=== PATIENT | female | born 1970 | race Caucasian/White ===

== ENCOUNTER 2016-08-26 15:00 | Inpatient (IN) | payer OTHER ==
[~2016-08-26] VITALS: Ht 165.1 cm; Wt 94.6 kg
--- NOTE | ~2016-08-26 | OR ---
PATIENT'S NAME: CHANI ZHAO [facility] AGE: 46 Y [address] ROOM: [place] [id number] LOCATION: [facility] ADMIT DATE: 09/03/2016 OR/Procedure Report DISCHARGE DATE: FAMILY PHYSICIAN: Trent White MD ATTENDING PHYSICIAN: MINH THOMAS SURGEON: Minh Thomas MD HEEL COVERER MACHINE OPERATOR: Deo Tatum CST/LEGAL EXAMINER and Dr. Minh Kirk. DATE OF PROCEDURE: 09/03/2016 PRE-OP DIAGNOSIS: Degenerative joint disease left knee. POST-OP DIAGNOSIS: Degenerative joint disease left knee. OPERATION: Left total knee arthroplasty with computer navigation. ANESTHESIA: Spinal anesthesia plus adductor canal block plus periarticular local anesthesia (Exparel). ESTIMATED BLOOD LOSS: Less than 20 mL. DRAIN: None. SPECIMEN: None. COMPLICATIONS: None. IMPLANT SYSTEM: [place] Triathlon Size 3 left posterior stabilized femoral component Size 2 universal modular tibial base plate An 11-mm posterior-stabilized size 2 X3 tibial polyethylene insert A 29-mm oval X3 patella component. INDICATIONS FOR SURGERY: Chani Zhao is a 46-year-old female, who presents with advanced left knee degenerative joint disease and associated severely compromised activities of daily living. The patient has decided to proceed with knee replacement after having been thoroughly counseled regarding the associated risks, benefits, and limitations. We have specifically reviewed the risks and implications of infection, deep venous thrombosis, pulmonary embolism, mortality, neurovascular complications, blood transfusion (and associated potential for disease transmission or transfusion reaction), stiffness, instability, mechanical deterioration of the components (due to wear and or loosening), and the potential need for revision. We have also emphasized the importance of active involvement and compliance with post- operative physical therapy as a means of optimizing range of motion and PATIENT'S NAME: CHANI ZHAO [facility] AGE: 46 Y [address] ROOM: [place] [address] LOCATION: [facility] ADMIT DATE: 09/03/2016 OR/Procedure Report DISCHARGE DATE: FAMILY PHYSICIAN: Trent White MD ATTENDING PHYSICIAN: MINH THOMAS functional recovery. Informed consent has been granted. Of note, the left total knee arthroplasty was performed under the same anesthetic as a revision right total knee arthroplasty (please refer to the separately dictated procedure for the right total knee arthroplasty revision). It should be noted that both lower extremities were prepped and draped concomitantly, and that the left total knee arthroplasty was performed after conclusion of the revision right total knee arthroplasty. DESCRIPTION OF PROCEDURE: The patient was positioned supine after administration of anesthesia and prophylactic antibiotics. A well-padded pneumatic tourniquet was placed around the left proximal thigh, and the left lower extremity was prepped and draped with vigilant sterile technique. The patient's name as well as the intended operative side and procedure were confirmed with a verbal time-out involving myself, the circulating nurse, the scrub nurse, and the anesthesiologist. Examination under anesthesia demonstrated no active skin lesions or masses. There was a mild effusion. There was no erythema. There was no abnormal warmth. Range of motion under anesthesia was from full extension to 130 degrees of flexion. There was no ligamentous insufficiency. The left lower extremity was elevated and exsanguinated with an Esmarch wrap, and the pneumatic tourniquet was inflated to 300 mmHg. The knee was approached through a longitudinal midline incision. A medial parapatellar arthrotomy was performed and the patella was everted. Examination of the joint space demonstrated a mild amount of benign-appearing translucent synovial fluid. There were no loose bodies. There was no synovitis. The cruciate ligaments were intact. There was a large popliteal cyst, which I decompressed into the posteromedial aspect of the joint by dilating its point of communication. There was full-thickness fissuring at the apex of the patella. There were small osteophytes at the medial and lateral femoral condyles as well as the medial tibial plateau. There was a 1 x 1-1/2 cm diameter region of full-thickness articular cartilage loss at the medial aspect of the medial femoral condyle. There was high-grade partial-thickness articular cartilage loss throughout the remainder of the medial femoral condyle. There was a 1-cm diameter region of full-thickness articular cartilage loss at the anteromedial aspect of the medial tibial plateau. There was high-grade partial-thickness articular cartilage loss throughout the majority of the anterior two-thirds of the medial tibial plateau. There was a 1-cm diameter region of high-grade partial thickness articular cartilage loss at the medial aspect of the lateral tibial plateau. The lateral meniscus was normal. There was a small flap tear at the posterior horn of the medial meniscus. PATIENT'S NAME: CHANI ZHAO [facility] AGE: 46 Y [address] ROOM: [id number] [place], [place] [id number] LOCATION: [facility] ADMIT DATE: 09/03/2016 OR/Procedure Report DISCHARGE DATE: FAMILY PHYSICIAN: Trent White MD ATTENDING PHYSICIAN: MINH THOMAS Remnants of the menisci and cruciate ligaments were excised. The Caterna computer navigation femoral tracker was pinned in place at the distal aspect of the femoral trochlea. Absence of motion between the femur and the tracking device was confirmed manually and visually. Femoral osseous landmarks were obtained in order to calibrate the computer navigation system. Landmarks included the center of rotation of the ipsilateral hip, the center-point of the distal femur, the femoral AP axis, 57 points on the medial femoral condyle articular surface, and 57 points on the lateral femoral condyle articular surface. The Caterna computer navigation system was subsequently utilized to position the distal femoral resection block such that the distal femoral resection was performed perfectly perpendicular to the femoral mechanical axis. The distal femoral resection was performed with a [employer] oscillating saw. The Caterna computer navigation tibial tracker was pinned in place at the anterior aspect of the tibial plateau. Absence of motion between the tibia and the tracking device was confirmed manually and visually. Tibial osseous landmarks were obtained in order to calibrate the computer navigation system. Landmarks included the center-point of the tibial plateau, the AP tibial axis, 57 points on the medial tibial plateau articular surface, 57 points on the lateral tibial plateau articular surface, the medial malleolus, and the lateral malleolus. The Caterna computer navigation system was subsequently utilized to position the proximal tibial resection block such that the proximal tibial resection was performed perfectly perpendicular to the tibial mechanical axis. The proximal tibial resection was performed with a [employer] Precision oscillating saw. Perpendicularity of the tibial resection with respect to the tibial shaft axis was reconfirmed by inserting a spacer- block attached to an extramedullary guide pablo. External rotation of the anterior and posterior femoral resections was set parallel to the epicondylar axis and carefully adjusted in order to create a rectangular flexion gap. The box resection was performed with a reciprocating saw. Anterior and posterior chamfer resections were performed with the oscillating saw. Posterior condyle osteophytes were excised with an osteotome. All other osteophytes were excised with a rongeur. Resection of all remnants of the menisci was reconfirmed. Flexion and extension gaps were confirmed to be symmetric and well balanced with a spacer-block technique. The patella resection was performed with an oscillating saw such that the composite thickness of the reconstructed patella was equivalent to the thickness of the [place]-apache patella. Patella tracking was confirmed to be optimal. A limited lateral retinacular release was required in order to optimize patellar tracking. PATIENT'S NAME: CHANI ZHAO [facility] AGE: 46 Y [address] ROOM: [address] [address] LOCATION: [facility] ADMIT DATE: 09/03/2016 OR/Procedure Report DISCHARGE DATE: FAMILY PHYSICIAN: Trent White MD ATTENDING PHYSICIAN: MINH THOMAS All trial components were removed and all prepared osseous surfaces were thoroughly irrigated with pulsatile saline lavage and dried prior to cementing all three components in a single stage using Flinja Simplex cement containing pre-mixed tobramycin. All extruded excess cement was removed. The entire joint space was thoroughly inspected and thoroughly irrigated with bacteriostatic pulsatile saline lavage to assure that there was no residual debris of any sort. Final range of motion was from full extension (with no passive hyperextension) to 130 degrees of flexion. Patella tracking was reconfirmed to be optimal. There was excellent anteroposterior stability at 90 degrees of flexion. There was less than 1 mm of medial lift-off to valgus stress in full extension. There was less than 1 mm of lateral lift-off to varus stress in full extension. The arthrotomy was closed with multiple simple and [id number] interrupted #1 Vicryl. Subcutaneous tissues were thoroughly re-irrigated with bacteriostatic pulsatile saline lavage. Subcutaneous tissues were re- approximated with simple buried interrupted #0 Vicryl sutures. The skin was closed with simple buried interrupted 2-0 Vicryl sutures followed by surgical torres. The dressing consisted of Xeroform gauze, 4x4 gauze, ABD pads and two 6-inch Cruz Wraps. There were no intra-operative complications. MD NEAL DELGADO/modl /[id number] d: 09/04/16 0635 t: 09/07/16 1203, OPERATIVE SUMMARY
--- NOTE | ~2016-08-26 | OR ---
PATIENT'S NAME: HARRISON ZHAO [facility] AGE: 46 Y [address] ROOM: [place] [address] LOCATION: [facility] ADMIT DATE: 09/03/2016 OR/Procedure Report DISCHARGE DATE: FAMILY PHYSICIAN: Trent White MD ATTENDING PHYSICIAN: MINH THOMAS SURGEON: Minh Thomas MD BOILERMAKER ASSEMBLY AND ERECTION: Deo Tatum BUFFET MANAGER/[employer] BOATMAN and Dr. Minh Kirk. DATE OF PROCEDURE: 09/03/2016 PREOPERATIVE DIAGNOSIS: Mechanical compromise of right total knee arthroplasty (ligamentous laxity with associated activity-related synovitis). POSTOPERATIVE DIAGNOSIS: Mechanical compromise of right total knee arthroplasty (ligamentous laxity with associated activity-related synovitis). PROCEDURE PERFORMED: Revision right total knee arthroplasty. ANESTHESIA: Spinal anesthesia plus periarticular local anesthesia (Exparel). ESTIMATED BLOOD LOSS: Less than 10 mL. SPECIMENS: Synovial fluid for cell count and routine cultures. COMPLICATIONS: None. EXPLANTS: Jeanne Persona size 13-mm posterior-stabilized cross-linked polyethylene insert. IMPLANTS: An 18-mm posterior-stabilized tibial polyethylene insert. INDICATIONS FOR PROCEDURE: Ms. Zhao is a 46-year-old female, who underwent a primary right total knee arthroplasty with Dr. Jhony Bell approximately two years ago. She presented with persistent and progressive right knee discomfort and instability symptoms. Radiographs demonstrate an uncemented tibial base plate with slight varus alignment, but no significant radiolucencies at the tibial or femoral interfaces. She is markedly unstable to varus and valgus stress in flexion and extension (symmetrically so). Risks, benefits, limitations, and alternatives to this procedure have been thoroughly reviewed with the patient, and informed consent has been granted. We have specifically reviewed risks and implications of infection, deep venous thrombosis, pulmonary embolism, mortality, neurovascular complications, blood transfusion risks, wear, loosening, and anticipated probable need for further revision later in life (secondary to the patient's life expectancy). She PATIENT'S NAME: HARRISON ZHAO [facility] AGE: 46 Y [address] ROOM: [place] [address] LOCATION: [facility] ADMIT DATE: 09/03/2016 OR/Procedure Report DISCHARGE DATE: FAMILY PHYSICIAN: Trent White MD ATTENDING PHYSICIAN: MINH THOMAS understands and accepts this. Informed consent was granted. It should be noted that a primary left total knee arthroplasty was performed after this procedure. Both lower extremities were prepped and draped simultaneously. DESCRIPTION OF PROCEDURE: The patient was positioned supine after administration of regional anesthesia and prophylactic antibiotics. Well- padded pneumatic tourniquets were placed around both proximal thighs. Both lower extremities were prepped and draped with vigilant sterile technique. Attention was first focused on the right knee. The right lower extremity was elevated and exsanguinated with an Esmarch wrap, and the pneumatic tourniquet was inflated to 300 mmHg. Examination of the right knee under anesthesia demonstrated a moderate effusion. There was no erythema. There was no abnormal warmth. Examination under anesthesia demonstrated 15 degrees of passive hyperextension. There was 5 mm to 6 mm of medial lift-off to valgus stress, and 5 mm to 6 mm of lateral lift-off to varus stress in full extension. There was markedly increased anteroposterior translation at 90 degrees of flexion. Specifically, virtually the entire tibial plateau could be subluxated anteriorly over the midpoint of the medial femoral condyle. The knee flexed to 140 degrees. The knee was approached through the pre-existing longitudinal midline scar. A medial parapatellar arthrotomy was performed. There was a large amount of benign-appearing translucent synovial fluid. This was sent for cell count and routine cultures. The interfaces of the tibial, femoral, and patellar components were inspected. Components all appeared to be well fixed. Direct inspection of the tibial femoral articulation (as varus and valgus stresses were applied) confirmed that there was approximately 6 mm of medial and lateral lift-off to valgus and varus stresses respectively. At 90 degrees of flexion, the tibial plateau could indeed be translated such that the posterior margin of the tibial plateau passed the mid point of the posterior femoral condyles. The 13-mm tibial polyethylene insert was extracted. There was significant wear of the posterior margin of the medial tibial plateau. Trial reductions were performed with the 16, 18, and 20-mm inserts. The 20-mm insert yielded an approximately 2- to 3-degree flexion contracture. The 18-mm insert yielded no flexion contracture, and only approximately 1 mm of residual medial and lateral laxity. This restored good stability in flexion and extension and mid flexion. The final tibial polyethylene insert was impacted into position. The entire PATIENT'S NAME: ALLOWAY, HARRISON L [facility] AGE: 46 Y [address] ROOM: [address] [address] LOCATION: [facility] ADMIT DATE: 09/03/2016 OR/Procedure Report DISCHARGE DATE: FAMILY PHYSICIAN: Trent White MD ATTENDING PHYSICIAN: MINH THOMAS joint space was thoroughly irrigated with bacteriostatic pulsatile saline lavage multiple times throughout the case. The locking mechanism was well visualized, and the new tibial polyethylene insert was confirmed to be fully seated. Patellar tracking was optimal. The arthrotomy was closed with multiple simple interrupted #1 Vicryl sutures. Subcutaneous and periarticular soft tissues were injected with Exparel prior to wound closure. The skin was closed with simple deep interrupted 0 Vicryl, followed by superficial buried interrupted 2-0 Vicryl, followed by surgical torres. The dressings consisted of Xeroform gauze followed by sterile gauze, ABD pads, and an Cruz wrap. Final range of motion was from full extension to 130 degrees of flexion. There was good anteroposterior stability at 90 degrees of flexion. There was 1 mm of medial and lateral lift-off in full extension. Attention was next focused on performing the contralateral knee primary total knee arthroplasty. Please refer to the separately dictated procedure note for the left total knee arthroplasty. MD NEAL DELGADO/modl /[id number] d: 09/04/16717 t: 09/07/16 1205, OPERATIVE SUMMARY
--- NOTE | ~2016-08-26 | DS ---
PATIENT'S NAME: HARRISON PIRES [facility] AGE: 46 Y [address] ROOM: [place] [address] LOCATION: [facility] ADMIT DATE: 09/03/2016 Discharge Summary DISCHARGE DATE: 09/05/2016 FAMILY PHYSICIAN: Trent White MD ATTENDING PHYSICIAN: Julio C Tinoco PRIMARY DIAGNOSIS: Failed right total knee arthroplasty and left knee degenerative joint disease. SECONDARY DIAGNOSIS: None. PROCEDURE PERFORMED: 1. Revision right total knee arthroplasty. 2. Left total knee arthroplasty. HISTORY: The patient is a 46-year-old female, who presents with failed right total knee arthroplasty and left knee degenerative joint disease and associated severely compromised activities of daily living. The patient has decided to proceed with total knee arthroplasty after having been thoroughly counseled regarding the risks, benefits, limitations and alternatives. Please refer to the outpatient clinic notes and admission history and physical for this patient. HOSPITAL COURSE: The patient underwent a left total knee arthroplasty on 09/03/2016 without complications. Spinal anesthesia plus adductor canal block plus periarticular local anesthesia was utilized. The patient received 24 hours of perioperative prophylactic antibiotics and remained hemodynamically stable, neurovascularly intact throughout the entire hospital course. The postoperative prophylactic deep venous thrombosis prophylaxis consisted of Xarelto, early mobilization and pneumatic compression devices. Daily physical therapy for gait training, transfer training range of motion and quadriceps isometric exercises were received. The patient progressed well in physical therapy. On the date of discharge, 09/05/2016, the incision at the knee was healing well and showed no signs of infection. DISPOSITION: Home. DISCHARGE ACTIVITY: The patient is to bear weight as tolerated with range of motion and quadriceps isometric exercises as instructed. The operative extremity is to be elevated at least 90% of the day. There is to be sterile 4x4 gauze dressings to the incision daily. Dr. Tinoco is to be notified immediately if there is any increased pain, fevers, chills erythema or drainage. DISCHARGE MEDICATIONS: PATIENT'S NAME: HARRISON PIRES [facility] AGE: 46 Y [address] ROOM: [address] [address] LOCATION: [facility] ADMIT DATE: 09/03/2016 Discharge Summary DISCHARGE DATE: 09/05/2016 FAMILY PHYSICIAN: Trent White MD ATTENDING PHYSICIAN: Julio C Tinoco 1. Xarelto 10 mg one tab p.o. daily for 12 days for postoperative DVT prophylaxis. 2. Hydromorphone 2 mg 1 to 2 tabs p.o. every 4 hours p.r.n. for pain. 3. Gabapentin 300 mg one tab p.o. every night for 7 days for pain. 4. Nicotine 14 mg patch. 5. Diazepam 5 mg one half to 1 tab p.o. every 6 hours p.r.n. for muscle spasms. 6. Celebrex 200 mg one tab p.o. b.i.d. x2 weeks for pain. She was then instructed to continue all her other preadmission medications as instructed by her internal medicine doctor. FOLLOWUP: Followup appointment is to be at Dr. Tinoco's office on 09/10/2016 for initial postoperative evaluation with x-rays of both knees and suture removal at that time. GILBERT SANDY PA-C FOR MD HAILEY DELGADOW/jeffl /[id number] d: 09/11/16 0403 t: 09/16/16 1758, DISCHARGE SUMMARY
[~2016-08-26 15:00] MED LIST: AMBIEN10 MG PO; LATUDA60 MG PO; LITHOBID300 MG PO; NORCO 5-325 MG1 TAB PO; SEROQUEL25 MG PO; ULTRAM50 MG PO; ZOLOFT100 MG PO
[2016-09-05] MEDS ORDERED: TYLENOL EXTRA500 MG PO (14:05)
[2016-09-05] MEDS ORDERED: COLACE100 MG PO (14:06)
[2016-09-05] MEDS ORDERED: NEURONTIN300 MG PO (14:06)
[2016-09-05] MEDS ORDERED: MIRALAX17 GM PO (14:08)
[2016-09-05] MEDS ORDERED: XARELTO10 MG PO (14:09)
[2016-09-05] MEDS ORDERED: VALIUM5 MG PO (14:10)
[2016-09-05] MEDS ORDERED: DILAUDID 2MG(HYD2 MG PO (14:12)
[2016-09-05] MEDS ORDERED: CELEBREX200 MG PO (14:12)
[2016-09-05] MEDS ORDERED: NORVASC5 MG PO (14:13)
== END 2016-09-05 14:45 | disposition disaster alternative care site (69) | DRG 470 ==
LOC: G3N 09-03 06:48
PROVIDERS: ADMIT Orthopaedic Surgery
DX: M17.12 Unilateral primary osteoarthritis, left knee (principal); T84.062A Wear of articular bearing surface of internal prosthetic right knee joint, initial encounter; I10 Essential (primary) hypertension; M65.9 Synovitis and tenosynovitis, unspecified
CPT/HCPCS: C1713; C1776; C9290; J0690; J1100; J1170; J1885; J2795; J7120